=== PATIENT | female | born 1980 ===

== ENCOUNTER 2022-03-15 15:56 | Day surgery (SDC) | payer BC, OTHER ==
[~2022-03-15 15:56] MED LIST: ATEN25 PO; Azor 10-20 MG1 EACH PO; DULO60 PO; NAPR500 PO; Omeprazole20 M1 PO; Prozac20 MG PO; QUETIAPINE FUMA50 MG PO; TRAZ150T57 PO; Vivitrol380 MG
== END 2022-03-15 22:51 | disposition home or self-care (01) ==
LOC: RAD 15:56
DX: M17.0 Bilateral primary osteoarthritis of knee (principal)
CPT/HCPCS: 73562-LT; 73562-RT

== ENCOUNTER 2022-05-19 23:35 | Observation (INO) | payer OTHER ==
[~2022-05-19] VITALS: Ht 167.6 cm; Wt 129.3 kg
[2022-05-20 01:16] LABS: BASOPHILS ABSOLUTE AUTO 0.06 K/mm3 (0.00-0.23); BASOPHILS PERCENT AUTO 1 % (0-2); EOSINOPHILS ABSOLUTE AUTO 0.03 K/mm3 (0.00-0.68); EOSINOPHILS PERCENT AUTO 0 % (0-6); Hematocrit 42.6 % (33.0-51.0); Hemoglobin 14.4 g/dL (11.5-16.0); IMMATURE GRAN ABSOLUTE AUTO 0.02 K/mm3 (0.00-0.10); IMMATURE GRAN PERCENT AUTO 0 % (0-1); LYMPHOCYTES ABSOLUTE AUTO 2.06 K/mm3 (0.84-5.20); LYMPHOCYTES PERCENT AUTO 30 % (21-46); MONOCYTES ABSOLUTE AUTO 0.54 K/mm3 (0.16-1.47); MONOCYTES PERCENT AUTO 8 % (4-13); Mean Corpuscular HGB 31.1 pg (26.0-34.0); Mean Corpuscular HGB Conc 33.8 g/dL (31.5-36.5); Mean Corpuscular Volume 92 fL (80-100); Mean Platelet Volume 9.3 fL (9.1-12.4); NEUTROPHILS ABSOLUTE AUTO 4.17 K/mm3 (1.96-9.15); NEUTROPHILS PERCENT AUTO 61 % (41-73); Platelet Count 367 K/mm3 (150-400); RDW Coefficient Variation 17.7 % (11.7-14.2); RDW Standard Deviation 59.4 fL (35.1-46.3); Red Blood Cell Count 4.63 M/mm3 (3.80-5.20); White Blood Cell Count 6.88 K/mm3 (4.00-11.30)
[2022-05-20 01:33] LABS: Ethanol (Alcohol), Blood, Med 251 mg/dL; Salicylate <1.7 mg/dL (2.8-20.0)
[2022-05-20] MEDS ORDERED: FLUO10 (01:33)
[2022-05-20] MEDS ORDERED: DIAZ2 (01:33)
[2022-05-20 01:34] LABS: Acetaminophen, Random <2.0 ug/mL (10.0-30.0); Alanine Aminotransfer (ALT/SGP 56 U/L (12-78); Albumin, Blood 3.3 g/dL (3.4-5.0); Albumin/Globulin Ratio 0.8 (0.8-1.8); Alk Phos 116 U/L (50-136); Anion Gap 16 mmol/L (6-16); Aspartate Aminotrans (AST/SGOT 103 U/L (12-37); Bilirubin, Total 0.6 mg/dL (0.1-1.0); Blood Urea Nitrogen 10 mg/dL (8-24); Bun/Creatinine Ratio 19.3 (12.0-20.0); CO2, Blood 24 mmol/L (21-32); Calcium, Blood 8.6 mg/dL (8.5-10.1); Chloride, Blood 101 mmol/L (98-108); Creatinine, Blood 0.52 mg/dL (0.40-1.00); Globulin, Blood 4.4 g/dL (2.2-4.0); Glomerular Filtration Rate 119 (60-); Glucose, Blood 83 mg/dL (70-99); Potassium, Blood 3.5 mmol/L (3.5-5.5); Sodium, Blood 141 mmol/L (136-145); Total Protein, Blood 7.7 g/dL (6.4-8.2)
[2022-05-20] MEDS ORDERED: CHLO25 PO ×2 (12:57→12:59)
[2022-05-20] MEDS ORDERED: PROMETHAZINE12.5 M1 PO (12:59)
[2022-05-20] MEDS ORDERED: ONDA4 PO (12:59)
== END 2022-05-20 14:45 | disposition home or self-care (01) ==
LOC: ER 23:35 → EOR 23:36
PROVIDERS: ADMIT Emergency Medicine
DX: F10.129 Alcohol abuse with intoxication, unspecified (principal); R10.10 Upper abdominal pain, unspecified; R74.01 Elevation of levels of liver transaminase levels; R45.851 Suicidal ideations; I10 Essential (primary) hypertension; F32.A Depression, unspecified; Z79.899 Other long term (current) drug therapy; Y90.8 Blood alcohol level of 240 mg/100 ml or more
CPT/HCPCS: 36415; 80053; 83690; 85025; 93005; 93010; 96361; 96374; 96375; 99285-25; A9270; G0378; G0480; J2405; J2765; J7030

== ENCOUNTER → 2022-07-15 | Outpatient (CLI) | payer OTHER ==
[~2022-07-15] MED LIST changes: +CHLO25 PO; +DIAZ2; +FLUO10; +ONDA4 PO; +PROMETHAZINE12.5 M1 PO
== END | disposition home or self-care (01) ==
LOC: LAB 15:07 → LAB SHORT 15:07
DX: N39.0 Urinary tract infection, site not specified (principal)
CPT/HCPCS: 87086

== ENCOUNTER 2022-10-08 15:00 | Emergency (ER) | payer OTHER ==
[~2022-10-08] VITALS: Ht 167.6 cm; Wt 129.3 kg
== END 2022-10-08 18:08 | disposition home or self-care (01) ==
LOC: ER 15:00
DX: F41.0 Panic disorder [episodic paroxysmal anxiety] (principal); I10 Essential (primary) hypertension; Z88.0 Allergy status to penicillin; Z79.899 Other long term (current) drug therapy
CPT/HCPCS: A9270

== ENCOUNTER 2022-10-16 16:12 | Inpatient (IN) | payer OTHER ==
[~2022-10-16] VITALS: Ht 167.6 cm; Wt 120.8 kg
[2022-10-16 18:49] LABS: BASOPHILS ABSOLUTE AUTO 0.06 K/mm3 (0.00-0.23); BASOPHILS PERCENT AUTO 0 % (0-2); EOSINOPHILS ABSOLUTE AUTO 0.02 K/mm3 (0.00-0.68); EOSINOPHILS PERCENT AUTO 0 % (0-6); Hematocrit 43.1 % (33.0-51.0); Hemoglobin 14.6 g/dL (11.5-16.0); IMMATURE GRAN ABSOLUTE AUTO 0.06 K/mm3 (0.00-0.10); IMMATURE GRAN PERCENT AUTO 0 % (0-1); LYMPHOCYTES ABSOLUTE AUTO 1.12 K/mm3 (0.84-5.20); LYMPHOCYTES PERCENT AUTO 7 % (21-46); MONOCYTES ABSOLUTE AUTO 0.72 K/mm3 (0.16-1.47); MONOCYTES PERCENT AUTO 4 % (4-13); Mean Corpuscular HGB 30.4 pg (26.0-34.0); Mean Corpuscular HGB Conc 33.9 g/dL (31.5-36.5); Mean Corpuscular Volume 90 fL (80-100); Mean Platelet Volume 9.5 fL (9.1-12.4); NEUTROPHILS ABSOLUTE AUTO 14.81 K/mm3 (1.96-9.15); NEUTROPHILS PERCENT AUTO 88 % (41-73); Platelet Count 398 K/mm3 (150-400); RDW Coefficient Variation 15.4 % (11.7-14.2); RDW Standard Deviation 50.7 fL (35.1-46.3); Red Blood Cell Count 4.81 M/mm3 (3.80-5.20); White Blood Cell Count 16.79 K/mm3 (4.00-11.30)
[2022-10-16 19:19] LABS: Albumin/Globulin Ratio 0.9 (0.8-1.8); Bilirubin, Total 0.7 mg/dL (0.1-1.0); Bun/Creatinine Ratio 20.3 (12.0-20.0); Calcium, Blood 9.1 mg/dL (8.5-10.1); Creatinine, Blood 0.64 mg/dL (0.40-1.00); Globulin, Blood 4.3 g/dL (2.2-4.0); Potassium, Blood 4.5 mmol/L (3.5-5.5); Total Protein, Blood 8.3 g/dL (6.4-8.2)
[2022-10-16 20:48] LABS: Magnesium, Blood 1.7 mg/dL (1.6-2.4); Phosphorus, Blood 3.1 mg/dL (2.5-4.9)
[2022-10-16] MEDS ORDERED: CELEBREX200 MG PO (22:21)
[2022-10-16] MEDS ORDERED: NEURONTIN300 MG PO (22:21)
[2022-10-16] MEDS ORDERED: HYDROXYZINE PAM25 MG PO (22:23)
[2022-10-16] MEDS ORDERED: METO50ER PO (22:23)
[2022-10-16] MEDS ORDERED: IMITREX100 MG PO (22:23)
[2022-10-16] MEDS ORDERED: FLUOXETINE HCL60 MG PO (22:24)
[2022-10-16] MEDS ORDERED: BUSPIRONE HCL10 M6 PO (22:24)
[2022-10-16] MEDS ORDERED: TRAZ50 (22:24)
[2022-10-16] MEDS ORDERED: ATOMOXETINE HC100 MG PO (22:25)
[2022-10-16 22:50] LABS: Influenza A, PCR NEGATIVE (NEGATIVE); Influenza B, PCR NEGATIVE (NEGATIVE); Resp Syncytial Virus, PCR NEGATIVE (NEGATIVE); SARS-Cov-2 (COVID-19) PCR, MMC NEGATIVE (NEGATIVE)
--- NOTE | 2022-10-16 23:05 | NUR ---
RECEIVED REPORT FROM VINCE ALEXANDER RN.
--- NOTE | 2022-10-16 23:16 | NUR ---
PT ARRIVED TO 301 VIA GURNEY. PT ABLE TO TRANSFER SELF TO BED. A/O. MOTHER AT BEDSIDE. ON RA. RESP EVEN. NOTED PT TREMOLOUS UPON ARRIVAL. PT ASSESSED FOR CIWA WHICH WAS EIGHT. MEDICATED WITH LIBRIUM. TRAMADOL GIVEN TO 9/10 PAIN LOCATED IN HER TAILBONE. PT HAD FALLEN THE NIGHT BEFORE WHILE DRINKING AT HOME. STATES SHE FELL ON A WOODEN FLOOR. MEDICATED FOR NAUSEA. PT GETS THE HICCUPS WHEN NAUSEATED. PT ABLE TO TAKE PILLS WITHOUT CHOKING OR COUGHING. WILL CONTINUE TO PROVIDE CARE T/O SHIFT. CALL LT IN REACH. BED ALARM PLACED FOR PT SAFETY.
[2022-10-16 23:36] LABS: Base Excess Venous -3.5 mmol/L; Bicarbonate Venous 22.2 mmol/L (24.0-30.0); PCO2 Venous 31.9 mmHg (38-42); pH Blood Venous 7.43 (7.34-7.37)
[2022-10-16 23:50] LABS: Bun/Creatinine Ratio 23.9 (12.0-20.0); Calcium, Blood 8.4 mg/dL (8.5-10.1); Creatinine, Blood 0.59 mg/dL (0.40-1.00); Potassium, Blood 4.1 mmol/L (3.5-5.5)
--- NOTE | 2022-10-17 01:32 | NUR ---
PT RESTING QUIETLY. IVF INFUSING. CALL LT IN REACH.
--- NOTE | 2022-10-17 01:59 | NUR ---
PT RESTING QUIETLY. CALL LT IN REACH.
--- NOTE | 2022-10-17 02:42 | NUR ---
25 MG LIBRIUM GIVEN FOR CIWA 11. NO OTHER NEEDS. CALL LT IN REACH.
--- NOTE | 2022-10-17 04:03 | NUR ---
PT RESTING QUIETLY. NO NEEDS AT THIS TIME. CALL LT IN REACH.
--- NOTE | 2022-10-17 04:07 | NUR ---
SHIFT SUMMARY: ED ADMIT AT 2316. A/O. ON RA. SBA. SINUS RHYTHM IN LOW 90'S ON TELE. NS AT 125 MLS/HR. CIWA'S 8-11. MEDICATED WITH 25 MG LIBRIUM X 2 WITH FAIR RESULTS, PT WENT TO SLEEP. TRAMADOL GIVEN ONCE FOR 9/10 PAIN IN HER TAILBONE AREA, PT STATES FALLING THE DAY BEFORE ON THEIR WOOD FLOOR. LAST DRINK 10/16/22 AT 0700. WILL CONTINUE TO PROVIDE CARE UNTIL SHIFT REPORT TO ONCOMING NURSE.
[2022-10-17 05:15] LABS: BASOPHILS ABSOLUTE AUTO 0.04 K/mm3 (0.00-0.23); BASOPHILS PERCENT AUTO 0 % (0-2); EOSINOPHILS ABSOLUTE AUTO 0.01 K/mm3 (0.00-0.68); EOSINOPHILS PERCENT AUTO 0 % (0-6); Hematocrit 35.4 % (33.0-51.0); Hemoglobin 12.3 g/dL (11.5-16.0); IMMATURE GRAN ABSOLUTE AUTO 0.02 K/mm3 (0.00-0.10); IMMATURE GRAN PERCENT AUTO 0 % (0-1); LYMPHOCYTES ABSOLUTE AUTO 1.05 K/mm3 (0.84-5.20); LYMPHOCYTES PERCENT AUTO 11 % (21-46); MONOCYTES ABSOLUTE AUTO 1.04 K/mm3 (0.16-1.47); MONOCYTES PERCENT AUTO 11 % (4-13); Mean Corpuscular HGB Conc 34.7 g/dL (31.5-36.5); Mean Corpuscular Volume 89 fL (80-100); Mean Platelet Volume 10.1 fL (9.1-12.4); NEUTROPHILS ABSOLUTE AUTO 7.38 K/mm3 (1.96-9.15); NEUTROPHILS PERCENT AUTO 77 % (41-73); Platelet Count 269 K/mm3 (150-400); RDW Coefficient Variation 14.9 % (11.7-14.2); RDW Standard Deviation 49.1 fL (35.1-46.3); Red Blood Cell Count 3.97 M/mm3 (3.80-5.20); White Blood Cell Count 9.54 K/mm3 (4.00-11.30)
[2022-10-17 05:42] LABS: Albumin, Blood 3.2 g/dL (3.4-5.0); Albumin/Globulin Ratio 0.9 (0.8-1.8); Bilirubin, Total 1.2 mg/dL (0.1-1.0); Bun/Creatinine Ratio 19.8 (12.0-20.0); Calcium, Blood 8.2 mg/dL (8.5-10.1); Creatinine, Blood 0.5 mg/dL (0.40-1.00); Globulin, Blood 3.7 g/dL (2.2-4.0); Potassium, Blood 3.7 mmol/L (3.5-5.5); Total Protein, Blood 6.9 g/dL (6.4-8.2)
[2022-10-17 12:07] LABS: Source, Urine Voided
[2022-10-17 12:15] LABS: Appearance, Urine Clear (Clear); Bilirubin, Urine Neg (Neg); Blood, Urine 1+ (Neg); Color, Urine Yellow (P-Yellow); Glucose Qualitative, Urine Neg (Neg); Ketones, Urine 4+ (Neg); Leukocyte Esterase, Urine 1+ (Neg); Nitrite, Urine Neg (Neg); Protein, Urine 1+ (Neg); Urobilinogen, Urine NORM (Normal); pH, Urine 6.5 (5.0-8.0)
[2022-10-17 13:03] LABS: Bacteria Many /hpf; Red Blood Cells, Urine 0-2 /hpf (0-2); Squamous Epithelial Cells Mod /hpf (Few)
[2022-10-17 13:04] LABS: Mucus Mod (0-Heavy)
--- NOTE | 2022-10-17 17:12 | NUR ---
SHIFT SUMMARY PATIENT IS ALERT AND ORIENTED. PATIENT IS ADMITTED FOR ETOH WITHDRAWAL. PATIENT STARTED SHIFT WITH CIWA OF 21 AND HAS MODERATED THROUGHOUT THE DAY, MEDICATED PER EMAR. PATIENT HAS BEEN MEDICATED ALTERNATIVELY WITH ATIVAN AND LIBRIUM WITH MILD SUCCESS. PATIENT HAS BEEN NAUSEOUS AND MEDICATED EMAR. PATIENT HAS NOT COMPLAINED OF PAIN AND SOB THIS SHIFT. PATIENT IS RECEIVING CONT NS FLUIDS AT 125/HR. PATIENT IS A ONE PERSON ASSIST TO BATHROOM. BED IN LOCKED AND LOWEST POSITION. CALL LIGHT IN PLACE. WILL MONITOR UNTIL SHIFT CHANGE.
[2022-10-18 05:18] LABS: Albumin, Blood 3.1 g/dL (3.4-5.0); Anion Gap 11 mmol/L (6-16); Blood Urea Nitrogen 9 mg/dL (8-24); Bun/Creatinine Ratio 14.5 (12.0-20.0); CO2, Blood 23 mmol/L (21-32); Calcium, Blood 8.4 mg/dL (8.5-10.1); Chloride, Blood 106 mmol/L (98-108); Creatinine, Blood 0.62 mg/dL (0.40-1.00); Glomerular Filtration Rate 114 (60-); Glucose, Blood 93 mg/dL (70-99); Magnesium, Blood 1.9 mg/dL (1.6-2.4); Phosphorus, Blood 1.9 mg/dL (2.5-4.9); Potassium, Blood 2.7 mmol/L (3.5-5.5); Sodium, Blood 140 mmol/L (136-145)
--- NOTE | 2022-10-18 06:21 | NUR ---
PATIENT BEGAN TO SLEEP INTERMITTANTLY AROUND 2300 LAST NIGHT, THEN WOULD WAKE SWEATING AND TREMULOUS. AT ONE POINT, SHE ASKED ABOUT WHO THE RUNNING INSTRUCTOR WAS SINGING TO HER IN HER ROOM. SHE WAS VERY SUPRIZED TO FIND OUT NO ONE HAD BEEN IN HER ROOM EXCEPT STAFF YESTERDAY EVENING. THIS WAS HER ONLY EPISODE OF BOTH VISUAL AND AUDITORY HALLUCINATIONS. MINIMAL COMPLAINTS OF HEADACHE AND LOW BACK PAIN (WHICH IS CHRONIC) CIWA SCORES RANGED FROM 19 TO 11 WHICH WAS AT 0600
--- NOTE | 2022-10-18 16:17 | NUR ---
SHIFT SUMMARY PATIENT IS ALERT AND ORIENTED. PATIENT IS ADMITTED FOR ETOH WITHDRAWAL. CIWAS HAVE BEEN STABLE. PATIENT HAS NOT HAD ANY ACUTE EVENTS THIS SHIFT. VITAL SIGNS REVIEWED. PATIENT HAS BEEN MEDICATED WITH ATIVAN AND LIBRIUM FOR CIWAS PRN. PATIENT HAS BEEN HAVING INTERMITTENT N/V AND MEDICATED PRN. PATIENT HAS NOT HAD SOB OR PAIN THIS SHIFT. BED IN LOCKED AND LOWEST POSITION. CALL LIGHT IN PLACE. WILL MONITOR UNTIL SHIFT CHANGE.
[2022-10-19 05:36] LABS: Albumin, Blood 2.8 g/dL (3.4-5.0); Anion Gap 7 mmol/L (6-16); Blood Urea Nitrogen 7 mg/dL (8-24); Bun/Creatinine Ratio 13.4 (12.0-20.0); CO2, Blood 27 mmol/L (21-32); Chloride, Blood 108 mmol/L (98-108); Creatinine, Blood 0.52 mg/dL (0.40-1.00); Glomerular Filtration Rate 119 (60-); Glucose, Blood 97 mg/dL (70-99); Phosphorus, Blood 3.1 mg/dL (2.5-4.9); Sodium, Blood 142 mmol/L (136-145)
--- NOTE | 2022-10-19 07:48 | NUR ---
PATIENT SLEEPING MORE TONIGHT. SHE DID TAKE A SHOWER WHILE HER MOTHER WAS HERE. 100 ML EMESIS EARLY IN EVENING. MEDICATED ONCE FOR NAUSEA. TWICE FOR MILD HEADACHE. 25MG LIBRIUM GIVEN FOR ANXIETY AND INCREASING CIWA SCORES. THIS WAS GIVEN INBETWEEN 2MG ATIVAN DOSES, CIWA SCORES RANGED FROM 8-15 OVERNIGHT. PATIENT DESCRIBES INCREASING VISUAL AND AUDITORY HALLUCINATIONS OVERNIGHT
[2022-10-19] MEDS ORDERED: B-1100 M1 PO (12:52)
[2022-10-19] MEDS ORDERED: CHLO25 PO (12:52)
--- NOTE | 2022-10-19 13:49 | NUR ---
Discharge Summary A/O, pleasant. Wanting to sleep. CIWA 10 and 4, meds given. Denies hallucination, slight tremors, mild headache, mild nausea without emesis. Discharging to home. Hard script given to patient. Reviewed d/c paperwork, copy given, questions answered. Belongings bagged by parents and sent home. Escorted by MANAGER HAIR via w/c.
== END 2022-10-19 14:20 | disposition home or self-care (01) | DRG 897 ==
LOC: ER 16:12 → MEDS 16:13
PROVIDERS: Internal Medicine; Physician Assistant; Student in an Organized Health Care Education/Training Program; ADMIT Internal Medicine
DX: F10.139 Alcohol abuse with withdrawal, unspecified (principal); E87.21 Acute metabolic acidosis; Z68.41 Body mass index [BMI] 40.0-44.9, adult; F41.9 Anxiety disorder, unspecified; F32.A Depression, unspecified; K21.9 Gastro-esophageal reflux disease without esophagitis; S70.00XA Contusion of unspecified hip, initial encounter; E87.6 Hypokalemia; E83.39 Other disorders of phosphorus metabolism; W18.30XA Fall on same level, unspecified, initial encounter; Z79.899 Other long term (current) drug therapy; Z88.1 Allergy status to other antibiotic agents; E66.9 Obesity, unspecified; Z20.822 Contact with and (suspected) exposure to COVID-19; Z28.21 Immunization not carried out because of patient refusal
CPT/HCPCS: 0241U; 36415; 71045; 72220; 80048; 80053; 80069; 81001; 82803; 83605; 83690; 83735; 84100; 85025; 87077; 87086; 87186; 93005; 93010; 94760; 96361; 96372; 96376; A9270; C9113; G0378; J1650; J1885; J2060; J2405; J3411; J7030; J7060

== ENCOUNTER 2023-01-14 15:01 | Emergency (ER) | payer OTHER ==
[~2023-01-14] VITALS: Ht 167.6 cm; Wt 131.5 kg
[~2023-01-14 15:01] MED LIST changes: +ATOMOXETINE HC100 MG PO; +B-1100 M1 PO; +BUSPIRONE HCL10 M6 PO; +CELEBREX200 MG PO; +FLUOXETINE HCL60 MG PO; +HYDROXYZINE PAM25 MG PO; +IMITREX100 MG PO; +METO50ER PO; +NEURONTIN300 MG PO; +TRAZ50
[2023-01-14 16:41] LABS: BASOPHILS ABSOLUTE AUTO 0.06 K/mm3 (0.00-0.23); BASOPHILS PERCENT AUTO 1 % (0-2); EOSINOPHILS ABSOLUTE AUTO 0.02 K/mm3 (0.00-0.68); EOSINOPHILS PERCENT AUTO 0 % (0-6); Hematocrit 36.7 % (33.0-51.0); Hemoglobin 12.2 g/dL (11.5-16.0); IMMATURE GRAN ABSOLUTE AUTO 0.03 K/mm3 (0.00-0.10); IMMATURE GRAN PERCENT AUTO 0 % (0-1); LYMPHOCYTES ABSOLUTE AUTO 1.68 K/mm3 (0.84-5.20); LYMPHOCYTES PERCENT AUTO 21 % (21-46); MONOCYTES ABSOLUTE AUTO 0.27 K/mm3 (0.16-1.47); MONOCYTES PERCENT AUTO 3 % (4-13); Mean Corpuscular HGB 30.7 pg (26.0-34.0); Mean Corpuscular HGB Conc 33.2 g/dL (31.5-36.5); Mean Corpuscular Volume 92 fL (80-100); Mean Platelet Volume 8.8 fL (9.1-12.4); NEUTROPHILS ABSOLUTE AUTO 5.96 K/mm3 (1.96-9.15); NEUTROPHILS PERCENT AUTO 74 % (41-73); Platelet Count 386 K/mm3 (150-400); RDW Standard Deviation 50.7 fL (35.1-46.3); Red Blood Cell Count 3.97 M/mm3 (3.80-5.20); White Blood Cell Count 8.02 K/mm3 (4.00-11.30)
[2023-01-14] MEDS ORDERED: NEURONTIN300 MG PO (16:43)
[2023-01-14] MEDS ORDERED: Methocarbamol750 MG PO (16:44)
[2023-01-14] MEDS ORDERED: HYDROXYZINE PAM25 MG PO (16:44)
[2023-01-14] MEDS ORDERED: DISU250 (16:46)
[2023-01-14] MEDS ORDERED: ATOMOXETINE HC100 MG PO (16:46)
[2023-01-14] MEDS ORDERED: PANTOPRAZOLE SO40 M2 PO (16:47)
[2023-01-14 17:01] LABS: Albumin, Blood 3.6 g/dL (3.4-5.0); Bilirubin, Total 0.3 mg/dL (0.1-1.0); Calcium, Blood 8.6 mg/dL (8.5-10.1); Creatinine, Blood 0.5 mg/dL (0.40-1.00); Globulin, Blood 3.6 g/dL (2.2-4.0); Potassium, Blood 4.3 mmol/L (3.5-5.5); Total Protein, Blood 7.2 g/dL (6.4-8.2)
[2023-01-14] MEDS ORDERED: ONDA4ODT MM (17:10)
== END 2023-01-14 17:36 | disposition home or self-care (01) ==
LOC: ER 15:01
PROVIDERS: Emergency Medicine
DX: F10.129 Alcohol abuse with intoxication, unspecified (principal); Y90.6 Blood alcohol level of 120-199 mg/100 ml; R11.2 Nausea with vomiting, unspecified; I10 Essential (primary) hypertension; Z88.0 Allergy status to penicillin; Z79.899 Other long term (current) drug therapy; Z87.891 Personal history of nicotine dependence
CPT/HCPCS: 80053; 83690; 85025; 96374; 96375; 99284-25; G0480; J2405; J7030

== ENCOUNTER 2023-07-04 21:31 | Emergency (ER) | payer OTHER ==
[~2023-07-04] VITALS: Ht 167.6 cm; Wt 127.0 kg
[~2023-07-04 21:31] MED LIST changes: +DISU250; +Methocarbamol750 MG PO; +ONDA4ODT MM; +PANTOPRAZOLE SO40 M2 PO
[2023-07-04 21:38] VITALS: BP 168/100
== END 2023-07-04 23:23 | disposition home or self-care (01) ==
LOC: ER 21:31
DX: G43.909 Migraine, unspecified, not intractable, without status migrainosus (principal); Z87.891 Personal history of nicotine dependence; Z88.0 Allergy status to penicillin; Z79.899 Other long term (current) drug therapy; Z79.890 Hormone replacement therapy; I10 Essential (primary) hypertension
CPT/HCPCS: 96374; 96375; 99283-25; J0780; J1200; J1885; J2405

== ENCOUNTER → 2023-08-19 | Outpatient (CLI) | payer OTHER | LOC: LAB 16:25 → LAB SHORT 16:25 | DX: N39.0 Urinary tract infection, site not specified (principal) | CPT/HCPCS: 87086; 87147 ==

== ENCOUNTER → 2023-10-06 | Outpatient (CLI) | payer BC, OTHER ==
[~2023-10-06] MED LIST changes: +KETO10 PO; +PROM25 PO; +TOPROL XL50 MG PO
== END ==
LOC: LAB 11:00 → LAB SHORT 11:00
DX: N39.0 Urinary tract infection, site not specified (principal)
CPT/HCPCS: 87086; 87147

== ENCOUNTER 2023-10-11 14:08 | Emergency (ER) | payer BC, OTHER ==
[~2023-10-11] VITALS: Ht 167.6 cm; Wt 127.0 kg
[~2023-10-11 14:08] MED LIST changes: -KETO10 PO; -PROM25 PO; -TOPROL XL50 MG PO
[2023-10-11] MEDS ORDERED: TOPROL XL50 MG PO (14:46)
[2023-10-11] MEDS ORDERED: KETO10 PO (15:17)
[2023-10-11] MEDS ORDERED: PROM25 PO (15:17)
[2023-10-11 15:30] VITALS: BP 158/90
== END 2023-10-11 15:32 | disposition home or self-care (01) ==
LOC: ER 14:08
DX: G43.909 Migraine, unspecified, not intractable, without status migrainosus (principal); I10 Essential (primary) hypertension; F17.290 Nicotine dependence, other tobacco product, uncomplicated; Z88.0 Allergy status to penicillin; Z79.899 Other long term (current) drug therapy
CPT/HCPCS: 96361; 96374; 96375; 99283-25; J1100; J1200; J1885; J7030

== ENCOUNTER 2023-10-18 19:00 | Emergency (ER) | payer BC, OTHER ==
[~2023-10-18] VITALS: Ht 167.6 cm; Wt 127.0 kg
[~2023-10-18 19:00] MED LIST changes: +KETO10 PO; +PROM25 PO; +TOPROL XL50 MG PO
[2023-10-18] MEDS ORDERED: ONDA4ODT MM (22:46)
[2023-10-18 23:03] VITALS: BP 168/108
== END 2023-10-18 22:59 | disposition home or self-care (01) ==
LOC: ER 19:00
DX: G43.909 Migraine, unspecified, not intractable, without status migrainosus (principal); I10 Essential (primary) hypertension; F32.A Depression, unspecified; F17.290 Nicotine dependence, other tobacco product, uncomplicated; Z88.0 Allergy status to penicillin; Z79.899 Other long term (current) drug therapy
CPT/HCPCS: 96365; 96375; 99283-25; J1200; J1885; J2765; J3475; J7030

== ENCOUNTER 2023-10-27 02:23 | Emergency (ER) | payer BC, OTHER ==
[~2023-10-27] VITALS: Ht 167.6 cm; Wt 127.0 kg
[2023-10-27] MEDS ORDERED: Ibuprofen600 MG PO (07:30)
[2023-10-27 07:57] VITALS: BP 120/74
== END 2023-10-27 08:05 | disposition home or self-care (01) ==
LOC: ER 02:23
DX: R51.9 Headache, unspecified (principal); E86.0 Dehydration; I10 Essential (primary) hypertension; F17.290 Nicotine dependence, other tobacco product, uncomplicated; Z88.0 Allergy status to penicillin; Z79.899 Other long term (current) drug therapy
CPT/HCPCS: 70450; 96361; 96374; 96375; 96376; 99284-25; A9270; J1200; J1885; J7030

== ENCOUNTER 2024-02-21 14:10 | Emergency (ER) | payer OTHER ==
[~2024-02-21] VITALS: Ht 167.6 cm; Wt 133.8 kg
[~2024-02-21 14:10] MED LIST changes: +Ibuprofen600 MG PO
[2024-02-21 15:43] LABS: BASOPHILS ABSOLUTE AUTO 0.05 K/mm3 (0.00-0.23); BASOPHILS PERCENT AUTO 1 % (0-2); EOSINOPHILS ABSOLUTE AUTO 0.16 K/mm3 (0.00-0.68); EOSINOPHILS PERCENT AUTO 2 % (0-6); Hematocrit 37.3 % (33.0-51.0); Hemoglobin 12.9 g/dL (11.5-16.0); IMMATURE GRAN ABSOLUTE AUTO 0.02 K/mm3 (0.00-0.10); IMMATURE GRAN PERCENT AUTO 0 % (0-1); LYMPHOCYTES ABSOLUTE AUTO 2.77 K/mm3 (0.84-5.20); LYMPHOCYTES PERCENT AUTO 32 % (21-46); MONOCYTES ABSOLUTE AUTO 0.74 K/mm3 (0.16-1.47); MONOCYTES PERCENT AUTO 9 % (4-13); Mean Corpuscular HGB 30.3 pg (26.0-34.0); Mean Corpuscular HGB Conc 34.6 g/dL (31.5-36.5); Mean Corpuscular Volume 88 fL (80-100); Mean Platelet Volume 9.6 fL (9.1-12.4); NEUTROPHILS ABSOLUTE AUTO 4.96 K/mm3 (1.96-9.15); NEUTROPHILS PERCENT AUTO 57 % (41-73); Platelet Count 349 K/mm3 (150-400); RDW Coefficient Variation 13.8 % (11.7-14.2); RDW Standard Deviation 43.8 fL (35.1-46.3); Red Blood Cell Count 4.26 M/mm3 (3.80-5.20)
[2024-02-21 16:04] LABS: Albumin, Blood 3.5 g/dL (3.4-5.0); Albumin/Globulin Ratio 0.9 (0.8-1.8); Bilirubin, Total 0.4 mg/dL (0.1-1.0); Bun/Creatinine Ratio 15.4 (12.0-20.0); Creatinine, Blood 0.46 mg/dL (0.40-1.00); Globulin, Blood 3.7 g/dL (2.2-4.0); Magnesium, Blood 2.2 mg/dL (1.6-2.4); Potassium, Blood 3.2 mmol/L (3.5-5.5); Total Protein, Blood 7.2 g/dL (6.4-8.2)
[2024-02-21 16:34] LABS: International Normalized Ratio 1.07; Prothrombin Time Results 11.2 Sec (9.7-11.5)
[2024-02-21] MEDS ORDERED: NS 1,000 ML IV SCH (17:45)
[2024-02-21] MEDS ORDERED: Potassium Chloride 20 MEQ TabCR PO ONE (17:45)
[2024-02-21] MEDS ORDERED: Ketorolac Tromethamine 30mg Vial IV ONE (17:45)
[2024-02-21 19:30] VITALS: BP 114/57
[2024-02-21] MEDS ORDERED: FAMO20 PO (19:43)
[2024-02-21] MEDS ORDERED: IBUP800 PO (19:43)
== END 2024-02-21 20:31 | disposition home or self-care (01) ==
LOC: ER 14:10
PROVIDERS: Emergency Medicine; Physician Assistant
DX: S82.61XA Displaced fracture of lateral malleolus of right fibula, initial encounter for closed fracture (principal); E86.0 Dehydration; F10.90 Alcohol use, unspecified, uncomplicated; Z88.0 Allergy status to penicillin; Z88.8 Allergy status to other drugs, medicaments and biological substances; Z79.899 Other long term (current) drug therapy; I10 Essential (primary) hypertension; F17.290 Nicotine dependence, other tobacco product, uncomplicated
CPT/HCPCS: 29515; 73610; 80053; 83735; 85025; 85610; 85730; 96361-59; 96374-59; 99284-25; A9270; J1885; J7030

== ENCOUNTER 2024-02-26 18:59 | Observation (INO) | payer OTHER ==
[~2024-02-26] VITALS: Ht 172.7 cm; Wt 111.1 kg
[~2024-02-26 18:59] MED LIST changes: +FAMO20 PO; +IBUP800 PO
[2024-02-26] MEDS ORDERED: Ketorolac Tromethamine 30mg Vial IM ONE (19:40)
[2024-02-26 19:51] LABS: BASOPHILS ABSOLUTE AUTO 0.08 K/mm3 (0.00-0.23); BASOPHILS PERCENT AUTO 1 % (0-2); EOSINOPHILS ABSOLUTE AUTO 0.12 K/mm3 (0.00-0.68); EOSINOPHILS PERCENT AUTO 1 % (0-6); Hematocrit 39.6 % (33.0-51.0); Hemoglobin 13.5 g/dL (11.5-16.0); IMMATURE GRAN ABSOLUTE AUTO 0.04 K/mm3 (0.00-0.10); IMMATURE GRAN PERCENT AUTO 0 % (0-1); LYMPHOCYTES ABSOLUTE AUTO 3.21 K/mm3 (0.84-5.20); LYMPHOCYTES PERCENT AUTO 34 % (21-46); MONOCYTES ABSOLUTE AUTO 0.61 K/mm3 (0.16-1.47); MONOCYTES PERCENT AUTO 7 % (4-13); Mean Corpuscular HGB 30.5 pg (26.0-34.0); Mean Corpuscular HGB Conc 34.1 g/dL (31.5-36.5); Mean Corpuscular Volume 89 fL (80-100); Mean Platelet Volume 9.1 fL (9.1-12.4); NEUTROPHILS ABSOLUTE AUTO 5.29 K/mm3 (1.96-9.15); NEUTROPHILS PERCENT AUTO 57 % (41-73); Platelet Count 397 K/mm3 (150-400); RDW Coefficient Variation 14.9 % (11.7-14.2); RDW Standard Deviation 47.9 fL (35.1-46.3); Red Blood Cell Count 4.43 M/mm3 (3.80-5.20); White Blood Cell Count 9.35 K/mm3 (4.00-11.30)
[2024-02-26 20:22] LABS: Acetaminophen, Random <2.0 ug/mL (10.0-30.0); Salicylate <1.7 mg/dL (2.8-20.0)
[2024-02-26 21:00] LABS: Alanine Aminotransfer (ALT/SGP 47 U/L (12-78); Albumin, Blood 3.4 g/dL (3.4-5.0); Albumin/Globulin Ratio 0.9 (0.8-1.8); Alk Phos 73 U/L (50-136); Anion Gap 12 mmol/L (3-11); Aspartate Aminotrans (AST/SGOT 45 U/L (12-37); Bilirubin, Total 0.4 mg/dL (0.1-1.0); Blood Urea Nitrogen 12 mg/dL (8-24); Bun/Creatinine Ratio 20.7 (12.0-20.0); CO2, Blood 30 mmol/L (21-32); Calcium, Blood 8.6 mg/dL (8.5-10.1); Chloride, Blood 108 mmol/L (98-108); Creatinine, Blood 0.58 mg/dL (0.40-1.00); Ethanol (Alcohol), Blood, Med 307 mg/dL; Globulin, Blood 3.6 g/dL (2.2-4.0); Glomerular Filtration Rate 114 (60-); Glucose, Blood 89 mg/dL (70-99); Potassium, Blood 3.1 mmol/L (3.5-5.5); Sodium, Blood 147 mmol/L (136-145)
[2024-02-27 09:49] VITALS: BP 160/101
[2024-02-27] MEDS ORDERED: Ketorolac Tromethamine 30mg Vial IM ONE (09:55)
[2024-02-27 10:06] LABS: Source, Urine Clean Catch
[2024-02-27 10:12] LABS: Appearance, Urine Hazy (Clear); Bilirubin, Urine Neg (Neg); Blood, Urine 1+ (Neg); Color, Urine Yellow (P-Yellow); Glucose Qualitative, Urine Neg (Neg); Ketones, Urine 3+ (Neg); Leukocyte Esterase, Urine 3+ (Neg); Nitrite, Urine Neg (Neg); Protein, Urine 2+ (Neg); Specific Gravity, Urine 1.025 (1.003-1.022); Urobilinogen, Urine NORM (Normal)
[2024-02-27 10:20] LABS: Bacteria Mod /hpf; Squamous Epithelial Cells Few /hpf (Few); Transitional Epithelial Cells Rare /hpf (0-Rare); White Blood Cells, Urine 25-50 /hpf (0-5)
[2024-02-27 10:25] LABS: U Amphetamine Screen DETECTED; U Barbituate Screen Not Detected; U Benzodiazapine Screen Not Detected; U Buprenorphine Screen Not Detected; U Cannabinoids Screen DETECTED; U Cocaine Screen Not Detected; U Methadone Screen Not Detected; U Methamphetamine Screen Not Detected; U Opiates Screen Not Detected; U Oxycodone Screen Not Detected; U Phencyclidine Screen Not Detected
== END 2024-02-27 12:44 | disposition home or self-care (01) ==
LOC: ER 18:59 → EOR 19:00
PROVIDERS: ADMIT Emergency Medicine
DX: F10.24 Alcohol dependence with alcohol-induced mood disorder (principal); R45.851 Suicidal ideations; F32.9 Major depressive disorder, single episode, unspecified; I10 Essential (primary) hypertension; Z88.1 Allergy status to other antibiotic agents
CPT/HCPCS: 80053; 81001; 81025; 85025; 87086; 93005; 93010; 96372; 99285-25; G0378; G0480; J1885

== ENCOUNTER → 2025-10-06 | Outpatient (CLI) | payer OTHER | LOC: LAB 16:45 → LAB SHORT 16:45 | DX: N39.0 Urinary tract infection, site not specified (principal) | CPT/HCPCS: 87086 ==